=== PATIENT | male | born 1985 | race Caucasian/White ===

== ENCOUNTER 2024-08-11 13:21 | Emergency (ER) | payer MEDICARE, BC, SELFPAY ==
[2024-08-11 13:25] VITALS: BP 137/82
--- NOTE | 2024-08-11 16:20 | ED.GENMED ---
History of Present Illness
General
Chief Complaint: DVT/Possible Blood Clot
Source: patient
Time Seen by Provider: 08/11/24 16:09
History of Present Illness
History of Present Illness:
38-year-old male presents complaining of right calf pain ongoing for several days. He is being seen by orthopedics for right knee injury is due to have an MRI of his right knee. He has a history of a DVT following a long flight but is not
currently anticoagulated. He has a history of Down syndrome. No known injury. No other complaints
Past History
Past History
ED Past Medical History: Other (Down's syndrome, with apnea with CPAP, history of DVT)
ED Past Surgical History: Other ( abdominal surgery and trache for empyema)
Social History
Tobacco: Non-smoker
Alcohol: None
Personal: Single
Living: with family
Employment: Employed
Phy Exam
Physical Exam
Physical Exam:
General: Well-appearing male no acute respiratory distress
Musculoskeletal exam: Right calf slightly swollen compared to the left no tenderness is noted the knee is nontender no effusion he has good range of motion of the right knee and ankle.
Skin is warm no rash or erythema
Vascular: 2+ DP pulse right foot right leg compartments are soft
Course
Orders/Labs/Results
Orders:
Orders
08/11/24 13:27
Legs, Right US [US Periph Venous LOWER Ext RT] Urgent
Comment:
Reason For Exam: r/o DVT
Vital Signs
Initial and Last Documented VS:
Initial Vital Signs
Temp Pulse Resp BP Pulse Ox
98.5 F 75 16 137/82 96
08/11/24 13:25 08/11/24 13:25 08/11/24 13:25 08/11/24 13:25 08/11/24 13:25
Last Documented Vital Signs
Temp Pulse Resp BP Pulse Ox
98.5 F 75 16 137/82 96
08/11/24 13:25 08/11/24 13:25 08/11/24 13:25 08/11/24 13:25 08/11/24 13:25
MDM/Problems Addressed
Differential Diagnosis Includes:
Right calf pain. Consider calf strain versus DVT versus referred pain from knee injury. No sign of cellulitis or infection. Clinical exam not concerning for compartment syndrome
Venous ultrasound ordered through triage was negative for DVT. I suspect underlying muscular pain. No indication for any intervention through the emergency room. Stable for discharge
*Critical Care Note
Total Time (30-74mins, 75-104mins- exclusive of procedures): Not Applicable
ED Attending Note
-
Portions of this chart may have been created with voice recognition software.� Occasional wrong word or��sound alike� substitutions may have occurred due to the inherent limitations of voice recognition software.
Discharge Plan
Departure
Patient Disposition: Home (Routine Discharge)
Date of Disposition: 08/11/24
Time of Disposition: 16:23
Patient with high blood pressure during this ER visit?: No
Discharge Problem:
Calf pain
Instructions: Muscle, joint, and bone pain - Discharge instructions
Referrals:
Keyur Benavidez MD [Family Provider] -
Activity Restrictions/Additional Instructions:
Please return here for worsening symptoms. Follow-up with orthopedics as planned otherwise
Interventions
Interventions:
*Risk Screen - Suicide Last Done: 08/11/24 13:27
*Neglect/Abuse Screening Last Done: 08/11/24 13:27
Discharge Date and Time
Print Language: SAMI
--- NOTE | 2024-08-11 16:22 | EDRN ---
Oly Horn PA was in to see pt.
[2024-08-11 16:27] VITALS: BP 129/52
== END 2024-08-11 16:35 | disposition home or self-care (01) ==
LOC: EMR 13:21
PROVIDERS: EMERGENCY PHYSICIAN Emergency Medicine; FAMILY PHYSICIAN Internal Medicine
DX: M79.661 Pain in right lower leg (principal); Q90.9 Down syndrome, unspecified; Z86.718 Personal history of other venous thrombosis and embolism
CPT/HCPCS: 99284; 93971

== ENCOUNTER → 2024-09-04 07:06 | Outpatient (REF) | payer MEDICARE, BC, SELFPAY | LOC: RAD 07:06 | PROVIDERS: ATTENDING PHYSICIAN Surgery; FAMILY PHYSICIAN Internal Medicine | DX: K43.2 Incisional hernia without obstruction or gangrene (principal) | CPT/HCPCS: 74177; Q9967 ==

== ENCOUNTER → 2024-09-17 08:10 | Outpatient (REF) | payer MEDICARE, BC, SELFPAY | LOC: MRI 3T 08:10 | PROVIDERS: ATTENDING PHYSICIAN Physician Assistant; FAMILY PHYSICIAN Internal Medicine | DX: M25.561 Pain in right knee (principal) | CPT/HCPCS: 73721 ==

== ENCOUNTER → 2024-10-24 08:31 | Outpatient (REF) | payer MEDICARE, BC, SELFPAY ==
[2024-10-24 09:26] LABS: Hematocrit 42.8 % (39.0-52.0); Hemoglobin 14.7 g/dL (13.0-18.0); Mean Corp Hgb Conc. 34.3 g/dL (33.0-37.0); Mean Corpuscular Hgb 29.3 pg (27.0-31.0); Mean Corpuscular Volume 85.3 fL (80.0-94.0); Mean Platelet Volume 8.8 fL (7.4-10.4); Platelet Count 313 10^3/uL (130-400); Red Blood Cell Count 5.02 10^6/uL (4.70-6.10); Red Cell Dist. Width 13.8 % (11.5-14.5); White Blood Cell Count 6.8 10^3/uL (4.8-10.8)
[2024-10-24 09:50] LABS: Blood Urea Nitrogen 16 mg/dl (9-20); Calcium 9.2 mg/dl (8.4-10.2); Carbon Dioxide 28 mmol/L (22-30); Chloride 106 mmol/L (98-107); Glucose 111 mg/dl (70-99); Potassium 4.8 mmol/L (3.5-5.1); Sodium 141 mmol/L (135-145); eGFR > 60.00
== END ==
LOC: SDSPAT 08:31
PROVIDERS: ATTENDING PHYSICIAN Surgery; FAMILY PHYSICIAN Internal Medicine
DX: Z01.818 Encounter for other preprocedural examination (principal)
CPT/HCPCS: 80048; 85027; 93005

== ENCOUNTER 2024-10-31 06:17 | Day surgery (SDC) | payer MEDICARE, BC, SELFPAY ==
[2024-10-24 12:52] VITALS: BMI 51.4
--- NOTE | 2024-10-24 14:23 | PTCARENOTE ---
Patients 10/24 ECG abnormal- reviewed by Dr. Peñaloza no additional interventions required
[2024-10-31] VITALS (11 sets, daily range): BP systolic 103–166; BP diastolic 60–80; BMI 51.4
[2024-10-31 10:38] LABS: Glucose - Point of Care 102 mg/dl (70-99)
[2024-10-31] MEDS: NORMOSOL-R/PLASMALYTE-A 1000 IV (10:48)
[2024-10-31] MEDS: TYLENOL 1000 MG PO (10:52)
[2024-10-31 14:44] LABS: Glucose - Point of Care 138 mg/dl (70-99)
[2024-10-31] MEDS: ZOFRAN 4 MG IV (14:58)
== END 2024-10-31 16:18 | disposition home or self-care (01) ==
LOC: SDS 06:17
PROVIDERS: ATTENDING PHYSICIAN Surgery; FAMILY PHYSICIAN Internal Medicine
DX: K43.2 Incisional hernia without obstruction or gangrene (principal); Q90.9 Down syndrome, unspecified; G47.33 Obstructive sleep apnea (adult) (pediatric); Z86.718 Personal history of other venous thrombosis and embolism; Z93.1 Gastrostomy status
CPT/HCPCS: 49613; 82962; C1781